=== PATIENT | female | born 1930 | race Caucasian/White ===

== ENCOUNTER → 2017-08-05 | Outpatient (CLI) | payer OTHER, MEDICAID ==
[~2017-08-05] MED LIST: CARV12.543 PO; FURO20TA3 PO; LETR2.5T PO; LISI-170 PO; OMEP-110 PO; SULF-169 PO
== END ==
LOC: CFH 13:18
PROVIDERS: ATTEND Internal Medicine
DX: Z02.9 Encounter for administrative examinations, unspecified (principal)

== ENCOUNTER → 2017-08-10 | Outpatient (CLI) | payer OTHER, MEDICAID | END | disposition home or self-care (01) | LOC: RAD 14:04 | PROVIDERS: ATTEND Internal Medicine | DX: M48.061 Spinal stenosis, lumbar region without neurogenic claudication (principal) | CPT/HCPCS: 72148 ==

== ENCOUNTER → 2017-09-14 | Outpatient (CLI) | payer OTHER, MEDICAID | END | disposition home or self-care (01) | LOC: RAD 13:27 | PROVIDERS: ATTEND Physician Assistant | DX: M51.36 Other intervertebral disc degeneration, lumbar region (principal); M48.02 Spinal stenosis, cervical region; M47.892 Other spondylosis, cervical region; M43.12 Spondylolisthesis, cervical region; M43.14 Spondylolisthesis, thoracic region; M25.78 Osteophyte, vertebrae; G82.20 Paraplegia, unspecified | CPT/HCPCS: 72141; 72148 ==

== ENCOUNTER → 2017-11-02 | Outpatient (CLI) | payer OTHER, MEDICAID | END | disposition home or self-care (01) | LOC: RAD 14:19 | PROVIDERS: ATTEND Physician Assistant | DX: G82.20 Paraplegia, unspecified (principal); R60.9 Edema, unspecified; G54.3 Thoracic root disorders, not elsewhere classified | CPT/HCPCS: 72146 ==

== ENCOUNTER → 2017-11-09 | Outpatient (CLI) | payer OTHER, MEDICAID ==
[~2017-11-09] MED LIST changes: +GADOBUTROL 10 MMOL/10 ML PFS ONE
== END | disposition home or self-care (01) ==
LOC: RAD 13:47
PROVIDERS: ATTEND Physician Assistant
DX: G95.29 Other cord compression (principal); G82.20 Paraplegia, unspecified
CPT/HCPCS: 72157; A9585

== ENCOUNTER 2018-09-02 10:24 | Inpatient (IN) | payer OTHER, MEDICAID ==
[~2018-09-02] VITALS: Ht 167.6 cm; Wt 96.7 kg
[~2018-09-02 10:24] MED LIST changes: -GADOBUTROL 10 MMOL/10 ML PFS ONE
[2018-09-02] MEDS ORDERED: SODIUM CHLORIDE FLUSH 10ML SYR IVF ONE (11:00)
[2018-09-02 11:28] LABS: INTERNATIONAL NORMALIZED RATIO 1.19 (0.93-1.1); PROTHROMBIN TIME 12.5 Seconds (9.6-11.5)
[2018-09-02 11:29] LABS: ALANINE AMINOTRANSFERASE 9 U/L (12-78); ANION GAP 5 mmol/L (5-15); CALCIUM 9.4 mg/dL (8.5-10.1); CHLORIDE 102 mmol/L (98-107); CREATININE 0.37 mg/dL (0.55-1.02)
[2018-09-02 11:33] LABS: ALKALINE PHOSPHATASE 53 U/L (45-117); BILIRUBIN,TOTAL 0.6 mg/dL (0.2-1.0); TOTAL PROTEIN 5.9 g/dL (6.4-8.2); TROPONIN I 0.041 ng/mL (0.000-0.045)
[2018-09-02 11:34] LABS: MD YES; MEAN CORPUSCULAR HEMOGLOBIN 16.4 pg (27.0-34.8); MEAN CORPUSCULAR VOLUME 65.6 fL (80-100); MEAN PLATELET VOLUME 8.5 fL (7.4-10.4); PLATELET COUNT 212 x10^3/uL (130-400); RED BLOOD COUNT 3.63 x10^6/uL (3.82-5.3); RED CELL DISTRIBUTION WIDTH 23.5 % (9.6-15.2)
[2018-09-02 12:00] LABS: ANISOCYTOSIS 2+; EOS#(MANUAL) 0.09 x10^3/uL (0.0-0.4); EOS% (MANUAL) 1 % (1-7); HYPOCHROMIA 2+; LYMPH#(MANUAL) 0.78 x10^3/uL (1-3.4); LYMPHS% (MANUAL) 9 % (22-44); MONOS#(MANUAL) 0.78 x10^3/uL (0.3-2.7); MONOS% (MANUAL) 9 % (2-9); NRBC % (MANUAL) 1 % (0-1); SEG#(MANUAL) 7.05 x10^3/uL (1.8-6.8); SEGS% (MANUAL) 81 % (42-75)
[2018-09-02 12:01] LABS: <PLATELET ESTIMATE> ADEQUATE; <PLT MORPHOLOGY> NORMAL PLT MORPH; POLYCHROMASIA 1+
[2018-09-02] MEDS ORDERED: CHOL400C PO (12:19)
[2018-09-02] MEDS ORDERED: CEFD300C37 PO (12:19)
[2018-09-02] MEDS ORDERED: HYDR-3237 PO (12:19)
[2018-09-02] MEDS ORDERED: FOLI0.4T2 PO (12:19)
[2018-09-02] MEDS ORDERED: ASPI-515 PO (12:19)
[2018-09-02 14:34] VITALS: BP 115/63
[2018-09-02] MEDS ORDERED: OMNIPAQUE 350 MG/ML, 100ML BOTTLE ONE (14:36)
[2018-09-02 14:50] VITALS: BP 117/70
[2018-09-02] MEDS ORDERED: ENOXAPARIN 100 MG/ML SQ SCH (15:30)
[2018-09-02] MEDS ORDERED: LIDOCAINE-MPF 1%, 5ML ONE (16:05)
[2018-09-02] MEDS ORDERED: ATROPINE OPHTH SOLN 1%, 2ML BC PRN (16:30)
[2018-09-02] MEDS ORDERED: LORazepam 2 MG/ML, 1ML IVPush PRN (16:30)
[2018-09-02] MEDS ORDERED: ONDANSETRON 2MG/ML, 2ML IVPush PRN (16:30)
[2018-09-02] MEDS ORDERED: MORPHINE SULFATE 4 MG/ML, 1ML IVPush PRN (16:30)
[2018-09-02] MEDS ORDERED: SODIUM CHLORIDE FLUSH 10ML SYR IVF PRN (17:00)
[2018-09-02 17:09] VITALS: BP 119/67
[2018-09-02 18:11] VITALS: BP 111/74
== END 2018-09-03 17:08 | disposition hospice, home (50) | DRG 189 ==
LOC: ED 14:50 → EDIP 15:32 → 3NW 17:30
PROVIDERS: ADMIT Hospitalist; ATTEND Hospitalist
PROC: 0W993ZZ Drainage of Right Pleural Cavity, Percutaneous Approach (ICD-10-PCS; principal; 2018-09-02)
PROC: 30233N1 Transfusion of Nonautologous Red Blood Cells into Peripheral Vein, Percutaneous Approach (ICD-10-PCS; 2018-09-02)
DX: J96.01 Acute respiratory failure with hypoxia (principal); I26.99 Other pulmonary embolism without acute cor pulmonale; I50.41 Acute combined systolic (congestive) and diastolic (congestive) heart failure; J98.19 Other pulmonary collapse; E87.3 Alkalosis; D68.59 Other primary thrombophilia; K92.2 Gastrointestinal hemorrhage, unspecified; Z66 Do not resuscitate; Z51.5 Encounter for palliative care; D50.9 Iron deficiency anemia, unspecified; I11.0 Hypertensive heart disease with heart failure; I48.91 Unspecified atrial fibrillation; Z86.711 Personal history of pulmonary embolism; Z85.3 Personal history of malignant neoplasm of breast; Z87.01 Personal history of pneumonia (recurrent); Z90.710 Acquired absence of both cervix and uterus
CPT/HCPCS: 32555; 36415; 36430; 71045; 71275; 80053; 82945; 83605; 83615; 83880; 83986; 84157; 84484; 85025; 85610; 85730; 86850; 86900; 86923; 87040; 87070; 87205; 89051; 93005; 99291; G0378; J2405; Q9967; P9016